=== PATIENT | female | born 1980 | race American Indian/Alaskan Native ===

== ENCOUNTER 2016-12-07 07:01 | Emergency (ER) | payer SELFPAY ==
[2016-12-07 08:08] LABS: Basophils % (Auto) 0.9 % (0.0-1.8); Eosinophils % (Auto) 1.6 % (0.0-4.3); Hematocrit 37.4 % (30.3-42.9); Hemoglobin 11.9 gm/dl (10.1-14.3); Mean Corpuscular HGB Conc 32 % (30-34); Mean Corpuscular Hemoglobin 27 pg (28-32); Mean Corpuscular Volume 86 fl (79-97); Platelet Count 172 K/mm3 (140-440); Red Blood Count 4.33 M/mm3 (3.65-5.03); Red Cell Distribution Width 16.4 % (13.2-15.2); White Blood Count 3.9 K/mm3 (4.5-11.0)
[2016-12-07 08:46] LABS: Bilirubin,Urine NEG (Negative); Blood,Urine LG (Negative); Ketones,Urine NEG (Negative); Leukocyte Esterase,Urine NEG (Negative); Nitrite,Urine NEG (Negative); Urobilinogen,Urine < 2.0 mg/dL (<2.0)
[2016-12-07 08:47] LABS: RBC,Urine > 182.0 /HPF (0.0-6.0)
[2016-12-07 12:39] VITALS: BP 124/78
--- NOTE | 2016-12-07 22:19 | Emergency Department Report ---
Entered by IRVIN MANZO, acting as scribe for LAUREN WEBB PA. ED Female HPI - General Chief complaint: Vaginal Bleeding Stated complaint: VAG BLEEDING Time Seen by Provider: 12/07/16 11:23 Source: patient Mode of arrival: Ambulatory Limitations: No Limitations - History of Present Illness Initial comments: 36 y/o female with a PMHx of fibroids presents to the ED c/o heavy vaginal bleeding that began 2 days ago. Denies abdominal pain, nausea, vomiting, fever, and chills. Patient states she started her menstrual period yesterday, but this period is heavier than normal. Notes she's had heavy vaginal bleeding for her last 2 menstrual periods. Patient states she was diagnosed with uterine fibroids in March of 2016 after heavy a menstrual period. NKDA. BOLANOS Complaint: vaginal bleeding (due to menstrual period) Onset/Timin -: days(s) Consistency: constant Improves with: none Worsens with: none Are you Now?: No Associated Symptoms: denies other symptoms, vaginal bleeding. denies: vaginal discharge, abdominal pain, nausea/vomiting, fever/chills, headaches, dysuria, hematuria, rash, seizure, shortness of breath, syncope, weakness - Related Data Previous Rx's Medication Instructions Recorded Last Taken Type HYDROcodone/APAP 5-325 [[place] 1 each PO Q6HR PRN #30 tablet 06/15/13 Unknown Rx 5/325 mg] Ibuprofen [Motrin 800 MG tab] 800 mg PO TID PRN #30 tablet 12/07/16 Unknown Rx Allergies Allergy/AdvReac Type Severity Reaction Status Date / Time No Known Allergies Allergy Unverified 06/15/13 07:59 ED Review of Systems Comment: All other systems reviewed and negative Constitutional: no symptoms reported. denies: chills, fever Respiratory: no symptoms reported. denies: cough, orthopnea, shortness of breath, SOB with exertion, SOB at rest, stridor Cardiovascular: denies: chest pain, palpitations Gastrointestinal: denies: abdominal pain, nausea, vomiting, diarrhea, hematemesis Genitourinary: other (vaginal bleeding due to menstrual periods). denies: urgency, dysuria, frequency, hematuria, discharge Musculoskeletal: denies: back pain Skin: denies: rash, lesions Neurological: denies: headache, weakness, numbness, paresthesias ED Past Medical Hx - Past Medical History Previous Medical History?: No - Surgical History Past Surgical History?: Yes Additional Surgical History: Tubal ligation, Right ovarian cyst - Social History Smoking Status: Never Smoker Substance Use Type: Alcohol - Medications Home Medications: Home Medications Medication Instructions Recorded Confirmed Last Taken Type HYDROcodone/APAP 5-325 [[place] 1 each PO Q6HR PRN #30 tablet 06/15/13 Unknown Rx 5/325 mg] Ibuprofen [Motrin 800 MG tab] 800 mg PO TID PRN #30 tablet 12/07/16 Unknown Rx ED Physical Exam - General Limitations: No Limitations General appearance: alert, in no apparent distress - Head Head exam: Present: atraumatic, normocephalic - Eye Eye exam: Present: normal appearance, PERRL, EOMI Pupils: Present: normal accommodation - ENT ENT exam: Present: normal exam, mucous membranes moist - Neck Neck exam: Present: normal inspection, full ROM. Absent: tenderness, meningismus, lymphadenopathy - Respiratory Respiratory exam: Present: normal lung sounds bilaterally. Absent: respiratory distress, wheezes, rales, rhonchi, stridor - Cardiovascular Cardiovascular Exam: Present: regular rate, normal rhythm. Absent: systolic murmur, diastolic murmur, rubs, gallop - GI/Abdominal GI/Abdominal exam: Present: soft, normal bowel sounds. Absent: distended, tenderness, guarding, rebound, rigid - Extremities Exam Extremities exam: Present: normal inspection, full ROM - Back Exam Back exam: Present: normal inspection - Neurological Exam Neurological exam: Present: alert, oriented X3 - Psychiatric Psychiatric exam: Present: normal affect, normal mood - Skin Skin exam: Present: warm, dry, intact. Absent: rash ED Course Vital Signs 12/07/16 12/07/16 07:32 12:39 Temperature 98.5 F Pulse Rate 67 64 Respiratory 16 16 Rate Blood Pressure 127/79 Blood Pressure 124/78 [Right] O2 Sat by Pulse 100 100 Oximetry ED Medical Decision Making - Lab Data Result diagrams: 12/07/16 07:58 - Medical Decision Making 36-year-old female presents with heavy vaginal bleeding during her menstrual period ED course: CBC, UA, urine test ordered. H&H normal, urinalysis negative, test results : Negative Patient is not ill-appearing. Normal exam. No abdominal tenderness or mass present during the exam. Discussed the follow-up for an SUSTAINABILITY OFFICER as referred. Discuss her symptoms return or worsen to return to the ED. Chest patient home on Motrin Patient states understanding and will follow instructions. Vital signs stable. Patient is in no acute distress. ED Disposition Clinical Impression: Menorrhagia with regular cycle Disposition: TO HOME OR SELFCARE Is pt being admited?: No Does the pt Need Aspirin: No Condition: Stable Instructions: Menorrhagia (ED) Additional Instructions: Follow-up with the RECREATIONAL AIDE as referred. If bleeding worsens return to ED. Particular medication as prescribed to help with pain and decreased bleeding Prescriptions: Ibuprofen [Motrin 800 MG tab] 800 mg PO TID PRN #30 tablet PRN Reason: Pain Referrals: PRIMARY CAREMD [Primary Care Provider] - 3-5 Days CHESTER ABRAHAM MD [Referring] - 3-5 Days [facility] [Outside] - 3-5 Days Forms: Work/School Release Form(ED) Time of Disposition: 12:23 This documentation as recorded by the JOVANY ashby JASMINE,accurately reflects the service I personally performed and the decisions made by JON ellsworth OYINLOLA A PA.
== END 2016-12-07 12:38 | disposition home or self-care (01) ==
LOC: ED 07:01
DX: N92.0 Excessive and frequent menstruation with regular cycle (principal)
CPT/HCPCS: 36415; 81001; 81025; 85025; 86850; 86900; 86901; 99283

== ENCOUNTER 2017-01-18 19:10 | Emergency (ER) | payer OTHER ==
[2017-01-18 20:16] LABS: Basophils % (Auto) 0.5 % (0.0-1.8); Eosinophils % (Auto) 1.2 % (0.0-4.3); Hematocrit 35.9 % (30.3-42.9); Hemoglobin 11.6 gm/dl (10.1-14.3); Mean Corpuscular HGB Conc 32 % (30-34); Mean Corpuscular Hemoglobin 28 pg (28-32); Mean Corpuscular Volume 85 fl (79-97); Platelet Count 189 K/mm3 (140-440); Red Cell Distribution Width 17.3 % (13.2-15.2); White Blood Count 6.1 K/mm3 (4.5-11.0)
[2017-01-18 20:38] LABS: Alanine Aminotransferase 14 units/L (7-56); Albumin 4.3 g/dL (3.9-5); Albumin/Globulin Ratio 1.4 %; Alkaline Phosphatase 74 units/L (35-129); Anion Gap 20 mmol/L; BUN/Creatinine Ratio 18.33; Bilirubin,Total < 0.20 mg/dL (0.1-1.2); Blood Urea Nitrogen 11 mg/dL (7-17); Calcium 8.9 mg/dL (8.4-10.2); Carbon Dioxide 21 mmol/L (22-30); Chloride 100.3 mmol/L (98-107); Glucose 92 mg/dL (65-100); Potassium 4.1 mmol/L (3.6-5.0); Sodium 137 mmol/L (137-145); Total Protein 7.4 g/dL (6.3-8.2)
[2017-01-18 20:42] LABS: Bilirubin,Urine NEG (Negative); Blood,Urine NEG (Negative); Ketones,Urine NEG (Negative); Leukocyte Esterase,Urine NEG (Negative); Nitrite,Urine NEG (Negative); Protein,Urine <15 mg/dL mg/dL (Negative); Urobilinogen,Urine < 2.0 mg/dL (<2.0); WBC,Urine < 1.0 /HPF (0.0-6.0)
[2017-01-19] MEDS ORDERED: MORPHINE IV ONE (01:24)
[2017-01-19] MEDS ORDERED: ZOFRAN IV ONE (01:24)
[2017-01-19] MEDS ORDERED: TORADOL IV ONE (01:24)
[2017-01-19] MEDS ORDERED: NACL 0.9% 1000 ML 1,000 ML IV ONE (01:24)
--- NOTE | 2017-01-19 01:24 | Emergency Department Report ---
ED Abdominal Pain HPI - General Chief Complaint: Abdominal Pain Stated Complaint: LWR ABD PAIN Time Seen by Provider: 01/19/17 01:14 Source: patient, RN notes reviewed, old records reviewed Mode of arrival: Ambulatory Limitations: No Limitations - History of Present Illness Initial Comments: This is a 37-year-old female. She is previously known to me. She is a history of right-sided ovarian cyst. Her primary care doctor is in [place]. Denies a past medical history of surgeries. The patient presents to the ER with lower abdominal pain, perirectal pain, nausea. The pain is sharp. It increases with palpation, it decreases with rest. Positive nausea, no vomiting. No irritative or obstructive urinary symptoms. She reports she is defecating. No irritative or obstructive urinary symptoms. No vaginal discharge. Reports 2 sexual partners within the past year. MD Complaint: abdominal pain -: Gradual Location: periumbilical, LLQ, RLQ Severity scale (0 -10): 7 Quality: cramping, aching Consistency: constant Improves With: rest Worsens With: movement Associated Symptoms: nausea, vomiting, anorexia - Related Data Previous Rx's Medication Instructions Recorded Last Taken Type HYDROcodone/APAP 5-325 [[place] 1 each PO Q6HR PRN #30 tablet 06/15/13 Unknown Rx 5/325 mg] Ibuprofen [Motrin 800 MG tab] 800 mg PO TID PRN #30 tablet 12/07/16 Unknown Rx Ibuprofen [Motrin] 600 mg PO Q8H PRN #30 tablet 01/19/17 Unknown Rx Ondansetron [Zofran Odt] 4 mg PO QID PRN #20 tab.rapdis 01/19/17 Unknown Rx Allergies Allergy/AdvReac Type Severity Reaction Status Date / Time banana Allergy Itching Verified 01/18/17 19:47 ED Review of Systems ROS: Stated complaint: LWR ABD PAIN Other details as noted in HPI Constitutional: denies: fever Eyes: denies: vision change ENT: denies: epistaxis Respiratory: denies: cough Cardiovascular: denies: chest pain Gastrointestinal: abdominal pain, constipation Genitourinary: denies: abnormal menses Musculoskeletal: denies: back pain Skin: denies: lesions Neurological: weakness ED Past Medical Hx - Past Medical History Previous Medical History?: Yes Additional medical history: FIBROIDS - Surgical History Past Surgical History?: Yes Additional Surgical History: Tubal ligation, Right ovarian cyst - Social History Smoking Status: Never Smoker Substance Use Type: Alcohol - Medications Home Medications: Home Medications Medication Instructions Recorded Confirmed Last Taken Type HYDROcodone/APAP 5-325 [[place] 1 each PO Q6HR PRN #30 tablet 06/15/13 Unknown Rx 5/325 mg] Ibuprofen [Motrin 800 MG tab] 800 mg PO TID PRN #30 tablet 12/07/16 Unknown Rx Ibuprofen [Motrin] 600 mg PO Q8H PRN #30 tablet 01/19/17 Unknown Rx Ondansetron [Zofran Odt] 4 mg PO QID PRN #20 tab.rapdis 01/19/17 Unknown Rx ED Physical Exam - General Limitations: No Limitations General appearance: alert, in no apparent distress - Head Head exam: Present: atraumatic, normocephalic - Eye Eye exam: Present: normal appearance, EOMI. Absent: nystagmus - ENT ENT exam: Present: normal exam, normal orophraynx, mucous membranes moist, normal external ear exam - Neck Neck exam: Present: normal inspection, full ROM - Respiratory Respiratory exam: Present: normal lung sounds bilaterally. Absent: respiratory distress, wheezes, rales, rhonchi, stridor, chest wall tenderness, accessory muscle use, decreased breath sounds, prolonged expiratory - Cardiovascular Cardiovascular Exam: Present: regular rate, normal rhythm, normal heart sounds. Absent: systolic murmur, diastolic murmur, rubs, gallop - GI/Abdominal GI/Abdominal exam: Present: soft, tenderness, normal bowel sounds. Absent: distended, guarding, rebound, rigid, pulsatile mass - Rectal Rectal exam: Present: normal inspection - External exam: Present: normal external exam Speculum exam: Present: normal speculum exam, cervical discharge. Absent: vaginal bleeding, foreign body Bi-manual exam: Present: normal bi-manual exam, other (escorted by TREMAINE Salter). Absent: cervical motion tendernes, adnexal tenderness, adnexal mass - Extremities Exam Extremities exam: Present: normal inspection, full ROM. Absent: pedal edema, calf tenderness - Back Exam Back exam: Present: normal inspection, full ROM. Absent: paraspinal tenderness , vertebral tenderness - Neurological Exam Neurological exam: Present: alert, oriented X3, other (Extraocular movements intact. Tongue midline. No facial droop. Facial sensation intact to light touch in the V1, V2, V3 distribution bilaterally. 5 and 5 strength in 4 extremities.. Sensation is intact to light touch in 4 extremities.). Absent: motor sensory deficit - Psychiatric Psychiatric exam: Present: normal affect, normal mood - Skin Skin exam: Present: warm, dry, intact, normal color. Absent: rash ED Course Vital Signs 01/18/17 01/19/17 01/19/17 19:47 00:21 01:28 Temperature 99.0 F 98.3 F Pulse Rate 82 65 Respiratory 16 18 Rate Blood Pressure 133/103 141/93 O2 Sat by Pulse 100 100 97 Oximetry 01/19/17 01/19/17 01/19/17 01:30 01:40 01:50 Temperature Pulse Rate Respiratory Rate Blood Pressure 126/74 126/74 126/74 O2 Sat by Pulse 98 99 100 Oximetry 01/19/17 01/19/17 01/19/17 02:00 02:10 02:20 Temperature Pulse Rate Respiratory Rate Blood Pressure 126/74 131/63 131/63 O2 Sat by Pulse 99 97 97 Oximetry 01/19/17 01/19/17 02:30 02:40 Temperature Pulse Rate Respiratory Rate Blood Pressure 114/66 114/66 O2 Sat by Pulse 96 96 Oximetry - Reevaluation(s) Reevaluation #1: 01/19/17 02:29 differential diagnosis: Ovarian cyst, constipation, pelvic inflammatory disease, appendicitis Assessment and plan: 37-year-old female with abdominal pain, nausea, and mild lower abdominal tenderness. Gynecologic exam is benign. Doubt PID. Laboratory studies unremarkable, urinalysis is not consistent with UTI. CT scan pending. Patient will be treated empirically with pain medication, nausea medication and IV fluids. Reassess Reevaluation #2: 01/19/17 04:21 CT scan demonstrates normal appendix. Uterine fibroids noted. Ovarian cyst noted. Mild pelvic fluid noted. No mass. No soft on repeat examination. Tolerating liquid feeds. Pain is improved. Patient will be discharged with pain medication, nausea medication, instructions to follow up with outpatient gynecology. No evidence of obstruction is noted. Chronic lesion noted in the pancreas. ED Medical Decision Making - Lab Data Result diagrams: 01/18/17 19:57 01/18/17 19:57 Vital Signs 01/18/17 01/19/17 19:47 00:21 Temperature 99.0 F 98.3 F Pulse Rate 82 65 Respiratory 16 18 Rate Blood Pressure 133/103 141/93 O2 Sat by Pulse 100 100 Oximetry Lab Results 01/18/17 01/18/17 01/18/17 Range/Units 19:57 19:57 19:57 WBC 6.1 (4.5-11.0) K/mm3 RBC 4.20 (3.65-5.03) M/mm3 Hgb 11.6 (10.1-14.3) gm/dl Hct 35.9 (30.3-42.9) % MCV 85 (79-97) fl MCH 28 (28-32) pg MCHC 32 (30-34) % RDW 17.3 H (13.2-15.2) % Plt Count 189 (140-440) K/mm3 Lymph % (Auto) 28.2 (13.4-35.0) % [place] % (Auto) 6.6 (0.0-7.3) % Eos % (Auto) 1.2 (0.0-4.3) % Baso % (Auto) 0.5 (0.0-1.8) % Lymph # 1.7 (1.2-5.4) K/mm3 [place] # 0.4 (0.0-0.8) K/mm3 Eos # 0.1 (0.0-0.4) K/mm3 Baso # 0.0 (0.0-0.1) K/mm3 Seg Neutrophils % 63.5 (40.0-70.0) % Seg Neutrophils # 3.9 (1.8-7.7) K/mm3 Sodium 137 (137-145) mmol/L Potassium 4.1 (3.6-5.0) mmol/L Chloride 100.3 (98-107) mmol/L Carbon Dioxide 21 L (22-30) mmol/L Anion Gap 20 mmol/L BUN 11 (7-17) mg/dL Creatinine 0.6 L (0.7-1.2) mg/dL Estimated GFR > 60 ml/min BUN/Creatinine Ratio 18.33 % Glucose 92 (65-100) mg/dL Calcium 8.9 (8.4-10.2) mg/dL Total Bilirubin < 0.20 (0.1-1.2) mg/dL AST 16 (5-40) units/L ALT 14 (7-56) units/L Alkaline Phosphatase 74 (35-129) units/L Total Protein 7.4 (6.3-8.2) g/dL Albumin 4.3 (3.9-5) g/dL Albumin/Globulin Ratio 1.4 % HCG, Qual Negative (Negative) Urine Color (Yellow) Urine Turbidity (Clear) Urine pH (5.0-7.0) Ur Specific [place] (1.003-1.030) Urine Protein (Negative) mg/dL Urine Glucose (UA) (Negative) mg/dL Urine Ketones (Negative) mg/dL Urine Blood (Negative) Urine Nitrite (Negative) Urine Bilirubin (Negative) Urine Urobilinogen (<2.0) mg/dL Ur Leukocyte Esterase (Negative) Urine WBC (Auto) (0.0-6.0) /HPF Urine RBC (Auto) (0.0-6.0) /HPF U Epithel Cells (Auto) (0-13.0) /HPF // Range/Units 20:15 WBC (4.5-11.0) K/mm3 RBC (3.65-5.03) M/mm3 Hgb (10.1-14.3) gm/dl Hct (30.3-42.9) % MCV (79-97) fl MCH (28-32) pg MCHC (30-34) % RDW (13.2-15.2) % Plt Count (140-440) K/mm3 Lymph % (Auto) (13.4-35.0) % [place] % (Auto) (0.0-7.3) % Eos % (Auto) (0.0-4.3) % Baso % (Auto) (0.0-1.8) % Lymph # (1.2-5.4) K/mm3 [place] # (0.0-0.8) K/mm3 Eos # (0.0-0.4) K/mm3 Baso # (0.0-0.1) K/mm3 Seg Neutrophils % (40.0-70.0) % Seg Neutrophils # (1.8-7.7) K/mm3 Sodium (137-145) mmol/L Potassium (3.6-5.0) mmol/L Chloride (98-107) mmol/L Carbon Dioxide (22-30) mmol/L Anion Gap mmol/L BUN (7-17) mg/dL Creatinine (0.7-1.2) mg/dL Estimated GFR ml/min BUN/Creatinine Ratio % Glucose (65-100) mg/dL Calcium (8.4-10.2) mg/dL Total Bilirubin (0.1-1.2) mg/dL AST (5-40) units/L ALT (7-56) units/L Alkaline Phosphatase (35-129) units/L Total Protein (6.3-8.2) g/dL Albumin (3.9-5) g/dL Albumin/Globulin Ratio % HCG, Qual (Negative) Urine Color Straw (Yellow) Urine Turbidity Clear (Clear) Urine pH 7.0 (5.0-7.0) Ur Specific [place] 1.013 (1.003-1.030) Urine Protein <15 mg/dl (Negative) mg/dL Urine Glucose (UA) Neg (Negative) mg/dL Urine Ketones Neg (Negative) mg/dL Urine Blood Neg (Negative) Urine Nitrite Neg (Negative) Urine Bilirubin Neg (Negative) Urine Urobilinogen < 2.0 (<2.0) mg/dL Ur Leukocyte Esterase Neg (Negative) Urine WBC (Auto) < 1.0 (0.0-6.0) /HPF Urine RBC (Auto) 2.0 (0.0-6.0) /HPF U Epithel Cells (Auto) 1.0 (0-13.0) /HPF - Radiology Data Radiology results: report reviewed, image reviewed Critical care attestation.: If time is entered above; I have spent that time in minutes in the direct care of this critically ill patient, excluding procedure time. ED Disposition Clinical Impression: Abdominal pain Disposition: DC-01 TO HOME OR SELFCARE Is pt being admited?: No Does the pt Need Aspirin: No Condition: Stable Instructions: Abdominal Pain (ED), Ovarian Cyst (ED) Additional Instructions: Take pain medication, nausea medication as directed. Follow up with a nursing home admissions director within the next 3-4 weeks. Follow up with the primary care doctor within the next 3-[address] scan demonstrated a chronic pancreatic cyst. This should be followed by her primary care doctor. CT scan demonstrated ovarian cyst, pelvic fluid, normal and consistent with being a female. Cultures were sent today, results will be available in the next 3-5 days. Have your nursing home admissions director or primary care doctor contact the medical records department to obtain culture results. Return to the ER right away with new pain, worsened pain, migration of pain, fevers, chills, chest pain, shortness of breath, intractable nausea or vomiting, confusion, inability to tolerate liquid feeds. Referrals: PRIMARY CAREMD [Primary Care Provider] - 3-5 Days GALILEA KO MD [Staff Physician] - 3-5 Days [facility] [Provider Group] - 3-5 Days
[2017-01-19] MEDS ORDERED: NACL ONE (02:44)
--- NOTE | 2017-01-19 04:18 | Cat Scan Report ---
FINAL REPORT PROCEDURE: CT ABDOMEN PELVIS W CON TECHNIQUE: Computerized axial tomography of the abdomen and pelvis was performed after the IV injection of iodinated nonionic contrast. HISTORY: abd pain COMPARISON: 06/15/2013 FINDINGS: Visualized lower thorax: No significant abnormality. Liver: Liver is normal in size. There is a 1 centimeter cyst in the right lobe unchanged from prior study.. Spleen: Normal size and attenuation. Gallbladder and biliary system: Normal. Pancreas: There is a cystic lesion in the body of the pancreas measuring 2.4 centimeters. This is similar to the prior examination.. Adrenals: Normal. Kidneys: Normal. GI tract: There is no bowel obstruction, colitis or enteritis. The appendix is normal.. Lymph nodes and mesentery: Normal. Vasculature: Normal. Bladder: Normal. Reproductive organs: There are uterine fibroids. There is a 1.5 centimeter involuting cyst in the left ovary which may have recently ruptured. There is no mass.. Peritoneum: There is moderate free pelvic fluid. There is no free air. There is no abscess. There are borderline prominent mesenteric lymph nodes which are nonspecific.. Musculoskeletal structures: No significant abnormality. Other: None. IMPRESSION: Liver is normal in size. There is a 1 centimeter cyst in the right lobe unchanged from prior study.. There is a cystic lesion in the body of the pancreas measuring 2.4 centimeters. This is similar to the prior examination.. There is no bowel obstruction, colitis or enteritis. The appendix is normal.. There are uterine fibroids. There is a 1.5 centimeter involuting cyst in the left ovary which may have recently ruptured. There is no mass.. There is moderate free pelvic fluid. There is no free air. There is no abscess.
[2017-01-19 05:16] VITALS: BP 120/76
== END 2017-01-19 05:18 | disposition home or self-care (01) ==
LOC: ED 19:10
DX: R10.30 Lower abdominal pain, unspecified (principal)
CPT/HCPCS: 36415; 74177; 80053; 81001; 84703; 85025; 87210; 87591; 96361; 96374; 96375; 99284; J1885; J2270; J2405; J7030; Q9967

== ENCOUNTER 2017-11-18 15:36 | Outpatient (CLI) | payer OTHER ==
[2017-11-18 16:19] LABS: Bilirubin,Urine NEG (Negative); Blood,Urine NEG (Negative); Color,Urine Yellow (Yellow); Mucus,Urine FEW /HPF; Protein,Urine <15 mg/dL mg/dL (Negative); Urobilinogen,Urine < 2.0 mg/dL (<2.0); WBC,Urine < 1.0 /HPF (0.0-6.0)
[2017-11-18 16:51] VITALS: BP 127/75
[2017-11-18] MEDS ORDERED: TYLENOL PO ONE (18:00)
== END 2017-11-18 17:14 | disposition home or self-care (01) ==
LOC: TRG 15:36
PROVIDERS: ATTEND Obstetrics & Gynecology
DX: O47.1 False labor at or after 37 completed weeks of gestation (principal); Z3A.37 37 weeks gestation of pregnancy
CPT/HCPCS: 59025; 81001

== ENCOUNTER 2017-11-25 10:54 | Outpatient (CLI) | payer OTHER ==
[2017-11-25 11:30] VITALS: BP 133/82
== END 2017-11-25 14:30 | disposition home or self-care (01) ==
LOC: TRG 10:54
PROVIDERS: ATTEND Obstetrics & Gynecology
DX: O47.1 False labor at or after 37 completed weeks of gestation (principal); Z3A.38 38 weeks gestation of pregnancy
CPT/HCPCS: 59025

== ENCOUNTER 2017-11-27 10:16 | Inpatient (IN) | payer OTHER ==
[2017-11-27] MEDS ORDERED: BRETHINE SUB-Q PRN (10:54)
[2017-11-27] MEDS ORDERED: BRETHINE IVP PRN (10:54)
[2017-11-27] MEDS ORDERED: STADOL IV PRN (10:54)
[2017-11-27] MEDS ORDERED: ePHEDrine SULFATE IV PRN ×2 (10:54→13:30)
[2017-11-27] MEDS ORDERED: XYLOCAINE 2% INFILTRATI ONE (10:54)
[2017-11-27] MEDS ORDERED: SUBLIMAZE IV PRN (10:54)
[2017-11-27] MEDS ORDERED: PITOCin/NS 30 UNIT/500ML 30 UNITS/500 ML BAG IV SCH (11:00)
[2017-11-27] MEDS ORDERED: PITOCin/NS 20 UNIT/1000ML DRIP 20 UNITS/1,000 ML BAG IV SCH (11:00)
[2017-11-27] MEDS: LACTATED RINGERS 1,000 ML IV SCH ×2 (11:30→14:30)
[2017-11-27 11:46] LABS: Hematocrit 35.5 % (30.3-42.9); Hemoglobin 11.6 gm/dl (10.1-14.3); Mean Corpuscular HGB Conc 33 % (30-34); Mean Corpuscular Hemoglobin 28 pg (28-32); Mean Corpuscular Volume 86 fl (79-97); Red Blood Count 4.13 M/mm3 (3.65-5.03); Red Cell Distribution Width 15.8 % (13.2-15.2)
[2017-11-27 11:53] LABS: Platelet Count 152 K/mm3 (140-440)
--- NOTE | 2017-11-27 13:14 | History and Physical Report ---
History of Present Illness Date of examination: 11/27/17 Date of admission: 11/27/17 10:16 History of present illness: 37 yo LMP EDC 12/06/17 @ 38.5 weeks gestation presented to office at 5cm in active labor. First trimester entry into care. care complicated by morbid obesity, anterior left fibroid and AMA with MFM comang't. GBS negative. Past History Past Medical History: other (fibroids) Past Surgical History: other () Family/Genetic History: diabetes, hypertension Social history: no significant social history - Obstetrical History Expected Date of Delivery: 12/06/17 Actual Gestation: 38 Week(s) 5 Day(s) : 9 Para: 5 Hx # Term Pregnancies: 5 Number of Pregnancies: 0 Spontaneous Abortions: 1 Induced : 2 Number of Living Children: 5 Medications and Allergies Allergies Allergy/AdvReac Type Severity Reaction Status Date / Time banana Allergy Itching Verified 01/18/17 19:47 Home Medications Medication Instructions Recorded Confirmed Last Taken Type Pnv No.95/Ferrous Fum/Folic AC 1 tab PO DAILY 11/18/17 11/18/17 1 Day Ago History [ Vitamins Tablet] ~11/17/17 Active Meds: Active Medications Butorphanol Tartrate (Stadol) 2 mg IV Q2H PRN PRN Reason: Pain , Severe (7-10) Last Admin: 11/27/17 11:30 Dose: 2 mg Ephedrine Sulfate (Ephedrine Sulfate) 10 mg IV Q2M PRN PRN Reason: Hypotension Fentanyl (Sublimaze) 100 mcg IV Q2H PRN PRN Reason: Labor Pain Lactated Ringer's (Lactated Ringers) 1,000 mls @ 125 mls/hr IV DIRECT MARI Last Admin: 11/27/17 11:30 Dose: 125 mls/hr Oxytocin/Sodium Chloride (Pitocin/Ns 20 Unit/1000ml Drip) 20 units in 1,000 mls @ 125 mls/hr IV DIRECT MARI Oxytocin/Sodium Chloride (Pitocin/Ns 30 Unit/500ml) 30 units in 500 mls @ 1 mls /hr IV TITR MARI; Protocol Mineral Oil (Mineral Oil) 30 ml PO QHS PRN PRN Reason: Constipation Terbutaline Sulfate (Brethine) 0.25 mg SUB-Q ONCE PRN PRN Reason: Hyperstimulation/Hypertonicity Terbutaline Sulfate (Brethine) 0.25 mg IVP ONCE PRN PRN Reason: Hyperstimulation/Hypertonicity - Vital Signs Vital signs: Vital Signs Temp Pulse Resp BP 98.5 F 89 18 131/82 11/27/17 11:11 11/27/17 11:11 11/27/17 11:11 11/27/17 11:11 Temp Pulse Resp BP Pulse Ox 98.5 F 89 18 131/82 11/27/17 11:11 11/27/17 11:11 11/27/17 11:30 11/27/17 11:11 - Physical Exam Genitourinary (Female): Positive: normal perenium - Obstetrical FHR: category 1 Uterine Contraction Monitor Mode: External Results Result Diagrams: 11/27/17 Unknown Abnormal lab results 11/27/17 Range/Units Unknown RDW 15.8 H (13.2-15.2) % All other labs normal. Assessment and Plan A: IUP at 38.5 weeks gestation Active Labor GBS negative P: Pitocin augmentation
[2017-11-27] MEDS ORDERED: NARCAN 2 MG/2 ML IV PRN (13:30)
--- NOTE | 2017-11-27 13:30 | Anesthesia Consultation ---
Anesthesia Consult and Med Hx Date of service: 11/27/17 - Airway Anesthetic Teeth Evaluation: Good ROM Head & Neck: Adequate Mental/Hyoid Distance: Adequate Mallampati Class: Class II Intubation Access Assessment: Probably Good - Pre-Operative Health Status ASA Pre-Surgery Classification: ASA2 Proposed Anesthetic Plan: Epidural, Spinal - Pulmonary Hx Asthma: No COPD: No Hx Pneumonia: No - Cardiovascular System Hx Hypertension: No - Central Nervous System Hx Seizures: No Hx Psychiatric Problems: No - Endocrine Hx Renal Disease: No Hx End Stage Renal Disease: No Hx Hypothyroidism: No Hx Hyperthyroidism: No - Hematic Hx Anemia: No Hx Sickle Cell Disease: No - Other Systems Hx Alcohol Use: Yes (occasional) Hx Obesity: Yes
--- NOTE | 2017-11-27 13:53 | Progress Note ---
Assessment and Plan A: IUP at 38.5 week Epidural Insitu Active Labor P: Active renate't Pitocin Subjective - Subjective Date of service: 11/27/17 Interval history: 37 yo LMP EDC 12/06/17 @ 38.5 weeks gestation presented to office at 5cm in active labor. First trimester entry into care. care complicated by morbid obesity, anterior left fibroid and AMA with MFM comang't. GBS negative. Patient reports: loss of fluid, vaginal bleeding (bloody show), movement normal, contractions, no new complaints Objective - Vital Signs Vital Signs: Vital Signs - 12hr 11/27/17 11/27/17 11:11 11:30 Temperature 98.5 F Pulse Rate 89 Respiratory 18 18 Rate Blood Pressure 131/82 [Right] - Exam Breasts: deferred Abdomen: Present: normal appearance FHR: category 1 Uterine Contraction Monitor Mode: External Cervical Dilatation: 5 Cervical Effacement Percentage: 80 station: -2 Uterine Contraction Frequency (min): 2-3 Uterine Contraction Pattern: Regular Uterine Tone Measurement Phase: Resting Uterine Contraction Intensity: Moderate - Labs Labs: Abnormal Labs 11/27/17 Unknown RDW 15.8 H Laboratory Results - last 24 hr 11/27/17 Unknown WBC 8.0 RBC 4.13 Hgb 11.6 Hct 35.5 MCV 86 MCH 28 MCHC 33 RDW 15.8 H Plt Count 152
[2017-11-27] MEDS ORDERED: fentaNYL-BUPIV 2 MCG/ML-0.125% 200 MCG/100 ML BAG EPIDURAL SCH (14:33)
[2017-11-27] MEDS ORDERED: TYLENOL PO PRN (15:33)
[2017-11-27] MEDS ORDERED: TUCKS PAD TP PRN (15:33)
[2017-11-27] MEDS ORDERED: BENADRYL PO PRN (15:33)
[2017-11-27] MEDS ORDERED: LANSINOH TP PRN (15:33)
[2017-11-27] MEDS ORDERED: PHENERGAN PO PRN (15:33)
[2017-11-27] MEDS ORDERED: ZOFRAN IV PRN (15:33)
[2017-11-27] MEDS ORDERED: PHENERGAN PR PRN (15:33)
--- NOTE | 2017-11-27 15:33 | Procedure Note ---
OB Delivery Note - Delivery Date of Delivery: 11/27/17 (7-8oz female @ 1508) Surgeon: NADINE FAULKNER Estimated blood loss: 100cc - Vaginal Delivery presentation: vertex Delivery position: OA Intrapartum events: none Delivery augmentation: pitocin Delivery monitor: external FHT, external uterine Route of delivery: Delivery placenta: spontaneous Delivery cord: 3 umbilical vessels Episiotomy: none Delivery laceration: none Anesthesia: none - Infant A at 1 minute: 8 at 5 minutes: 9 Infant Gender: Female (, stimulated to cry. Placed skin to skin. Congested. Respiratory at BS. Deep suctioned. Spont. placenta, bleeding scant, Pitocin infusing. No lacerations. Blood pressure elevated. Denies PIH S&S. PIH panel and urine sent.)
[2017-11-27 15:53] LABS: Bacteria,Urine 1+ /HPF (Negative); Bilirubin,Urine NEG (Negative); Blood,Urine SM (Negative); Color,Urine Yellow (Yellow); Mucus,Urine 1+ /HPF; Protein,Urine <15 mg/dL mg/dL (Negative); Urobilinogen,Urine < 2.0 mg/dL (<2.0); WBC,Urine < 1.0 /HPF (0.0-6.0)
[2017-11-27 15:59] LABS: Alanine Aminotransferase 9 units/L (7-56); Uric Acid 3.3 mg/dL (3.5-7.6)
[2017-11-27] MEDS ORDERED: SODIUM CHLORIDE FLUSH SYRINGE 10 ML IV NR (16:00)
[2017-11-27] MEDS ORDERED: MINERAL OIL PO PRN (22:00)
[2017-11-27] MEDS ORDERED: MILK OF MAGNESIA PO PRN (22:00)
[2017-11-27] MEDS ORDERED: DULCOLAX PR PRN (22:00)
[2017-11-27] MEDS: MOTRIN PO SCH (23:30)
[2017-11-28] MEDS: MOTRIN PO SCH ×3 (05:25→23:39)
[2017-11-28 06:24] LABS: Hematocrit 31.2 % (30.3-42.9); Hemoglobin 10.4 gm/dl (10.1-14.3)
[2017-11-28] MEDS ORDERED: PRENATAL VITAMIN PO SCH (10:00)
--- NOTE | 2017-11-28 10:29 | Progress Note ---
Assessment and Plan A: PPD#1 s/p at term, Morbid Obesity, Asymptomatic anemia P: Routine care. Anticipate discharge tomorrow. Subjective - Subjective Date of service: 11/28/17 Principal diagnosis: s/p at term Interval history: Pt c/o LLQ discomfort after the delivery, but otherwise no complaints. Patient reports: appetite normal, voiding normally, ambulating normally, no nauseated : doing well Objective - Vital Signs Latest vital signs: Vital Signs Temp Pulse Resp BP BP Pulse Ox 11/28/17 07:25 98.1 F 77 18 130/85 99 11/28/17 04:10 98.0 F 88 18 132/67 11/28/17 00:00 98.3 F 94 H 18 135/73 11/27/17 16:30 97.7 F 70 18 133/80 11/27/17 12:00 18 11/27/17 11:30 18 11/27/17 11:11 98.5 F 89 18 131/82 Intake and Output 11/27/17 11/28/17 11/28/17 22:59 06:59 14:59 Intake Total 240 120 Output Total 750 250 Balance -510 -130 Intake: Oral 240 120 Output: Urine 750 250 Void 750 250 Other: Total, Intake Amount 240 120 Total, Output Amount 400 250 # Voids Void 1 Estimated Blood Loss 100 - Exam Breasts: Present: deferred Cardiovascular: Present: Regular rate Lungs: Present: Clear to auscultation Abdomen: Present: soft (obese ) Uterus: Present: fundal height at umbilicus Extremities: Present: edema (trace) - Labs Labs: Abnormal lab results 11/27/17 11/27/17 Range/Units 15:46 Unknown RDW 15.8 H (13.2-15.2) % Creatinine 0.4 L (0.7-1.2) mg/dL Uric Acid 3.3 L (3.5-7.6) mg/dL Lactate Dehydrogenase 184 H (91-180) units/L
--- NOTE | 2017-11-28 10:35 | Discharge Summary ---
Providers - Providers Date of Admission: 11/27/17 10:16 Date of discharge: 11/29/17 Attending physician: AIMEE MCCULLOUGH Primary care physician: AIMEE MCCULLOUGH Hospitalization Reason for admission: active labor Delivery: Procedure details: Please see delivery note. Episiotomy: none Laceration: none complications: none Discharge diagnosis: IUP at term delivered baby: female Hospital course: Patient was admitted in active labor and went on to have a spontaneous vaginal delivery which she tolerated well. The remainder of her course is uncomplicated and she met discharge criteria on day #2. She will follow-up in the office in [address] Mccullough. Condition at discharge: Stable Disposition: DC-01 TO HOME OR SELFCARE - Discharge Diagnoses (1) Term of female Status: Acute (2) Morbid obesity Status: Acute (3) Anemia Status: Acute Qualifiers: Anemia type: unspecified type Qualified Code(s): D64.9 - Anemia, unspecified (4) Fibroid uterus Status: Acute Plan - Discharge Medications Prescriptions: Ferrous Sulfate [Feosol 325 MG tab] 325 mg PO BID #60 tablet HYDROcodone/APAP 5-325 [[place] 5/325] 1 each PO Q6HR PRN #20 tablet PRN Reason: Pain Ibuprofen [Motrin] 800 mg PO Q8HR PRN #30 tablet PRN Reason: Pain - Provider Discharge Summary Activity: routine, no sex for 6 weeks, no heavy lifting 4 weeks, no strenuous exercise Diet: routine Instructions: routine Additional instructions: [] Smoking cessation referral if applicable(refer to patient education folder for contact #) [] Refer to [facility]'s [facility] Booklet Call your doctor immediately for: * Fever > 100.5 * Heavy vaginal bleeding ( >1 pad per hour) * Severe persistent headache * Shortness of breath * Reddened, hot, painful area to leg or breast * Drainage or odor from incision. * Keep incision clean and dry at all times and follow doctor's instructions regarding bathing/showering - Follow up plan Follow up: AIMEE MCCULLOUGH MD [Primary Care Provider] - 12/25/17 (please call to schedule appt )
[2017-11-28] MEDS: NORCO 5/325 PO PRN ×2 (15:57→22:49)
[2017-11-29] MEDS: MOTRIN PO SCH (05:29)
[2017-11-29 10:52] VITALS: BP 127/73
== END 2017-11-29 16:12 | disposition home or self-care (01) | DRG 775 ==
LOC: LD 10:16 → OB 18:24
PROVIDERS: ADMIT Obstetrics & Gynecology; ATTEND Obstetrics & Gynecology
PROC: 10E0XZZ Delivery of Products of Conception, External Approach (ICD-10-PCS; principal; 2017-11-27)
DX: O34.13 Maternal care for benign tumor of corpus uteri, third trimester (principal); Z37.0 Single live birth; D25.9 Leiomyoma of uterus, unspecified; Z3A.38 38 weeks gestation of pregnancy; O99.214 Obesity complicating childbirth; E66.01 Morbid (severe) obesity due to excess calories; D64.9 Anemia, unspecified; Z68.39 Body mass index [BMI] 39.0-39.9, adult; O90.81 Anemia of the puerperium
CPT/HCPCS: 36415; 81001; 82565; 83615; 84450; 84460; 84550; 85014; 85018; 85027; 86592; 86850; 86900; 86901; 99211; G0463; J0595; J2590; J7120

== ENCOUNTER 2018-01-09 06:54 | Day surgery (SDC) | payer OTHER ==
[2018-01-08 10:41] LABS: Hematocrit 36.4 % (30.3-42.9); Hemoglobin 11.9 gm/dl (10.1-14.3); Mean Corpuscular HGB Conc 33 % (30-34); Mean Corpuscular Hemoglobin 28 pg (28-32); Mean Corpuscular Volume 85 fl (79-97); Platelet Count 145 K/mm3 (140-440); Red Blood Count 4.28 M/mm3 (3.65-5.03); Red Cell Distribution Width 17.1 % (13.2-15.2)
--- NOTE | 2018-01-08 10:58 | Anesthesia Consultation ---
Anesthesia Consult and Med Hx Date of service: 01/08/18 - Airway Anesthetic Teeth Evaluation: Good ROM Head & Neck: Adequate Mental/Hyoid Distance: Adequate Mallampati Class: Class II Intubation Access Assessment: Probably Good - Pulmonary Exam CTA: Yes - Cardiac Exam Cardiac Exam: RRR - Pre-Operative Health Status ASA Pre-Surgery Classification: ASA2 Proposed Anesthetic Plan: General - Pulmonary Hx Asthma: Yes (Weather related, last treated November.) COPD: No Hx Pneumonia: No - Cardiovascular System Hx Hypertension: No - Central Nervous System Hx Seizures: No Hx Psychiatric Problems: No - Endocrine Hx Renal Disease: No Hx End Stage Renal Disease: No Hx Hypothyroidism: No Hx Hyperthyroidism: No - Hematic Hx Anemia: No Hx Sickle Cell Disease: No - Other Systems Hx Alcohol Use: Yes (occas) Hx Cancer: No Hx Obesity: Yes
[~2018-01-09 06:54] MED LIST: DILAUDID IV PRN; LACTATED RINGERS 1,000 ML IV SCH
[2018-01-09] MEDS ORDERED: DEMEROL IV PRN (07:57)
[2018-01-09] MEDS ORDERED: ZOFRAN IV PRN (07:57)
[2018-01-09] MEDS ORDERED: DILAUDID IV PRN (07:57)
[2018-01-09] MEDS ORDERED: NEURONTIN PO NR (08:00)
[2018-01-09] MEDS ORDERED: VERSED IV NR (08:00)
[2018-01-09] MEDS ORDERED: LACTATED RINGERS 1,000 ML IV SCH ×2 (08:00→10:00)
[2018-01-09] MEDS ORDERED: QUELICIN ONE (08:30)
[2018-01-09] MEDS ORDERED: ZEMURON IV ONE (08:32)
[2018-01-09] MEDS ORDERED: DIPRIVAN 10 MG/ML IV ONE ×2 (08:32→09:35)
[2018-01-09] MEDS ORDERED: BLOXIVERZ ONE (08:32)
[2018-01-09] MEDS ORDERED: DECADRON ONE (08:32)
[2018-01-09] MEDS ORDERED: ROBINUL ONE (08:32)
[2018-01-09] MEDS ORDERED: XYLOCAINE MPF 2% ONE (08:34)
[2018-01-09] MEDS ORDERED: SUBLIMAZE ONE (08:34)
[2018-01-09] MEDS ORDERED: MARCAINE 0.5% INFILTRATI ONE ×2 (08:34→09:38)
--- NOTE | 2018-01-09 08:36 | Short Stay Summary ---
Short Stay Documentation Date of service: 01/09/18 Narrative H&P: 38-year-old with a history of undesired fertility. The patient has had a previous tubal ligation and has conceived after the tubal ligation. She has elected to undergo a bilateral salpingectomy. - History Principal diagnosis: undesired fertility Past Medical History: other (uterine fibroids) Past Surgical History: Other (laparoscopies; and cystectomy; tubal ligation) Social history: single - Allergies and Medications Current Medications: Allergies banana Allergy (Verified 01/07/18 17:00) Itching Home Medications Medication Instructions Recorded Confirmed Last Taken Type No Known Home Medications [No 01/07/18 01/07/18 Unknown History Reported Home Medications] Active Medications Celecoxib (Celebrex) 200 mg PO PREOP NR Stop: 01/09/18 13:00 Gabapentin (Neurontin) 300 mg PO PREOP NR Stop: 01/09/18 13:00 Hydromorphone HCl (Dilaudid) 0.5 mg IV Q10MIN PRN PRN Reason: Pain , Severe (7-10) Stop: 01/09/18 13:00 Lactated Ringer's (Lactated Ringers) 1,000 mls @ 42 mls/hr IV DIRECT MARI Lactated Ringer's (Lactated Ringers) 1,000 mls @ 75 mls/hr IV DIRECT MARI Lactated Ringer's (Lactated Ringers) 1,000 mls @ 100 mls/hr IV DIRECT MARI Meperidine HCl (Demerol) 25 mg IV ONCE PRN PRN Reason: Shivering Midazolam HCl (Versed) 2 mg IV PREOP NR Stop: 01/09/18 23:59 Ondansetron HCl (Zofran) 4 mg IV ONCE PRN PRN Reason: Nausea And Vomiting - Physical exam General appearance: no acute distress Integumentary: no rash HEENT: Atraumatic Lungs: Clear to auscultation Breasts: deferred Heart: Regular rate Gastrointestinal: normal Female Genitourinary: deferred Rectal Exam: deferred - Brief post op/procedure progress note Date of procedure: 01/09/18 Pre-op diagnosis: undesired fertility; previous failed tubal ligation Post-op diagnosis: same Procedure: Laparoscopy Bilateral salpingectomy Anesthesia: GETA Surgeon: LANDON RIVERO Estimated blood loss: minimal Pathology: list (bilateral fallopian tubes) Specimen disposition: to lab Condition: stable - Hospital course Hospital course: The patient was admitted the day of surgery and underwent a laparoscopy and bilateral salpingectomy. Please see operative note for details of surgery. Postoperative course was uneventful. - Disposition Condition at discharge: Good Disposition: DC-01 TO HOME OR SELFCARE Short Stay Discharge Plan Activity: other (pelvic rest for 1 week) Diet: regular Additional Instructions: Follow-up is not required Follow-up as needed Prescriptions: Ibuprofen [Motrin] 800 mg PO Q8HR PRN #60 tablet PRN Reason: Pain, Moderate (4-6) oxyCODONE /ACETAMINOPHEN [Percocet 5/325] 1 tab PO Q6HR PRN #30 tablet PRN Reason: Pain
[2018-01-09] MEDS ORDERED: NACL 0.9% IR ONE (09:37)
[2018-01-09] MEDS ORDERED: DILAUDID ONE (09:59)
--- NOTE | 2018-01-09 10:15 | Operative Report ---
Operative Report Operative Report: Date of surgery: 01/09/2018 Preoperative diagnosis: Unwanted fertility Postoperative diagnosis: Same as above Procedure: Laparoscopy; bilateral salpingectomy Surgeon: Sarahy Guy M.D. Anesthesia: General endotracheal anesthesia Estimated blood loss: Minimal Findings: Normal uterus tubes and ovaries; transection of the left fallopian tube had not previously been complete Pathology: Bilateral fallopian tubes Indication: 38-year-old 035 with a history of a prior tubal ligation with the patient subsequently conceived 2. The patient elected for permanent sterilization Procedure: The patient was taken to the operating room and given general endotracheal anesthesia without complication. The patient is prepped and draped in a normal sterile fashion. A bivalve speculum was placed in the patient's vagina and a single-tooth tenaculum was placed on the anterior lip of the cervix .A uterine acorn manipulato rwas placed, and the bivalve speculum was then removed. Attention was then turned to the patient's abdomen where a 5 mm infraumbilical skin incision was then made. A Veress needle was placed and peritoneal entry was verified water-filled syringe. Insufflation of the peritoneal cavity was performed with CO2 gas. A 5 mm trocar was placed and the laparoscope was then inserted. The patient was then placed in Trendelenburg. A 5 mm suprapubic skin incision was then made. Under direct visualization a 5 mm trocar was then placed. An additional left lateral 7 mm trocar was placed under direct visualization. General survey of the patient's abdomen revealed normal uterus and ovaries. Both tubes were present with evidence of transection of the right fallopian tube and the left fallopian tube appeared to still be intact. The fallopian tube was then followed out to the fimbriated end. The LigaSure device was then placed through the 7 mm trocar. The right fallopian tube was grasped at the fimbriated end and then the LigaSure device was used to coagulate and transect the mesosalpinx of the right fallopian tube. The right tube was transected from the uterus and removed through the 7 mm trocar. Attention was then turned to the patient's left tube in which the procedure was repeated in a similar fashion. The 5 and 7 mm trocars were then removed. The pneumoperitoneum was then released. The 5 mm laparoscope trocar was then removed. The skin incisions were then closed with 4 -0 Monocryl. The incisions were injected with quarter percent Marcaine. Dressings were applied to the incision. The vaginal instruments were then removed atraumatically. Then successfully extubated and taken to the recovery room. All sponge laps and needle counts were correct 2.
[2018-01-09] MEDS ORDERED: TORADOL ONE (10:16)
[2018-01-09] MEDS ORDERED: PERCOCET 5/325 ONE (10:41)
[2018-01-09] MEDS ORDERED: PERCOCET 5/325 PO ONE (10:47)
[2018-01-09 11:14] VITALS: BP 129/75
== END 2018-01-09 06:55 | disposition home or self-care (01) ==
LOC: OR 06:54
PROVIDERS: ATTEND Obstetrics & Gynecology
DX: Z30.2 Encounter for sterilization (principal); J45.909 Unspecified asthma, uncomplicated; E66.9 Obesity, unspecified; Z91.018 Allergy to other foods; Z98.890 Other specified postprocedural states; Z68.37 Body mass index [BMI] 37.0-37.9, adult
CPT/HCPCS: 36415; 58661; 84703; 85027; 88302; J0330; J1100; J1170; J1885; J2250; J2405; J2704; J2710; J3010; J7120